=== PATIENT | female | born 1995 | race Caucasian/White ===

== ENCOUNTER 2020-10-09 00:22 | Outpatient (CLI) | payer OTHER ==
[~2020-10-09] VITALS: Ht 162.6 cm; Wt 105.2 kg
[2020-10-09 00:40] VITALS: BP 116/58
[2020-10-09] MEDS ORDERED: ALBU83IN INH (00:44)
[2020-10-09] MEDS ORDERED: ZOLO50TA PO (00:45)
[2020-10-09] MEDS ORDERED: PRENTAB9 PO (00:45)
--- NOTE | 2020-10-09 02:00 | IPNPDOC ---
Text Note Date of Service The patient was seen on 10/09/20. NOTE L&D TRIAGE VISIT HPI: Mrs. Hilary Cunha is a 25yo at 30w6d ega, by LMP, who presents with complaints of SOB (now resolved) & intermittent RUQ pain. Mrs. Cunha reports the onset of shortness of breath (SOB) this morning prompting her to use her albuterol inhaler, which provided minimal improvement. She went about her day and repeated her albuterol this evening. Again, she received minimal relief with continued wheezing. Since arriving to L&D, her SOB has largely resolved and she is more concerned about the status of her baby. Her second complaint is of new onset nausea/vomiting and RUQ pain that began this afternoon after eating BBQ chicken. She has experienced four episodes of emesis. Her RUQ pain occurs several times per hour since starting. Denies sick contacts, HAs, scotoma or a h/o elevated BPs in her . Finally, she denies CTXs, LOF and VB. Endorses + FM. PMH: - Anxiety / Depression PSH: - Negative OBH: - G1: T- - G2: current MEDS: - Vitamins - Sertraline ALL: - Penicillin (rash & swelling) PHYSICAL EXAMINATION Vital Signs: BP - 116/58mmHg, HR - 96bpm, RR - 16, Temp - 96.8F, O2 Saturation - 98% on Room Air Gen: AA0x3, NAD CV: RRR Lungs: CTAB, no wheezing/rhonchi Abd: Gravid uterus, NTTP EXT: No c/c/e LABS CMP: Creatinine - 0.66; ALT/AST - 23/17 Amylase: 74 Lipase: 79 UA: Negative Leukocyte Esterase / Nitrite / Blood / Protein / Glucose; 2+ Ba cteria IMAGING RUQ U/S: - Biliary sludge. LIMITED U/S: SDP - 6.4cm NST: 130bpm, moderate variability, + accelerations, - decelerations, reassuring NST TOCO: No CTXs or irritability ASSESSMENT: 25yo at 30w6d ega who presents for new onset RUQ pain that likely related to her biliary sludge. No e/o pancreatitis at this time. SOB now resolved. PLAN: - Follow-up at next [facility] appointment - Pt instructed to call the [facility] if her symptoms worsen - Return precautions reviewed - All questions answered Lisa Shultz., Ph.D. [facility] Staff VS,Avinash I+Michelle VS, Avinash I+O Vital Signs Date Time Temp Pulse Resp B/P (MAP) Pulse Ox O2 Delivery O2 Flow Rate FiO2 10/09/20 00:40 96.8 96 16 116/58 (77) 98 Room Air LUISA NICOLAS M.D. Oct 09, 2020 01:59
[2020-10-09 02:21] LABS: APPEARANCE, URINE CLEAR (CLEAR); BACTERIA, URINE AUTO 2+ (NEGATIVE); BILIRUBIN, URINE AUTO NEGATIVE (NEGATIVE); BLOOD, URINE BLOOD NEGATIVE (NEGATIVE); COLOR, URINE STRAW (YELLOW); GLUCOSE, URINE (UA) AUTO NEGATIVE (NEGATIVE); KETONE, URINE AUTO NEGATIVE (NEGATIVE); LEUKOCYTE ESTERASE, URINE AUTO NEGATIVE (NEGATIVE); NITRITE, URINE AUTO NEGATIVE (NEGATIVE); PROTEIN, URINE AUTO NEGATIVE (NEGATIVE); RBC, URINE AUTO 1 /HPF (0-3); SPECIFIC GRAVITY URINE AUTO 1.002 (1.002-1.035); SQUAMOUS EPITHELIAL CELL UR AU 0 /HPF (0-6); UROBILINOGEN, URINE AUTO 0.2 mg/dL (0.0-2.0); WBC, URINE AUTO 0 /HPF (0-3)
[2020-10-09 02:26] LABS: ALBUMIN 2.6 GM/DL (3.2-5.2); ALT/SGPT 23 U/L (12-78); AMYLASE 74 U/L (25-115); BILIRUBIN,TOTAL 0.2 MG/DL (0.2-1.0); BLOOD UREA NITROGEN 8 MG/DL (7-18); CALCIUM LEVEL 8.1 MG/DL (8.5-10.1); CARBON DIOXIDE LEVEL 24 MEQ/L (21-32); CHLORIDE LEVEL 108 MEQ/L (98-107); CREATININE FOR GFR 0.66 MG/DL (0.55-1.30); GLOMERULAR FILTRATION RATE > 60.0 (>60); GLUCOSE, FASTING 92 MG/DL (70-100); LIPASE 79 U/L (73-393); SODIUM LEVEL 140 MEQ/L (136-145); TOTAL PROTEIN 6.7 GM/DL (6.4-8.2)
--- NOTE | 2020-10-09 02:32 | REPVR ---
PROCEDURE INFORMATION: Exam: US Abdomen, Limited; Right Upper Quadrant Exam date and time: 10/09/2020 2:00 AM Age: 25 years old Clinical indication: Abdominal pain; Epigastric; ; Additional info: Rule out cholelithiasis - ruq TECHNIQUE: Imaging protocol: US abdomen. Real time ultrasound with image documentation. Limited exam focused on the right upper quadrant. COMPARISON: No relevant prior studies available. FINDINGS: Liver: The echogenicity of the liver is within normal limits. No liver lesion is identified from the images obtained. The contour of the liver is smooth. Gallbladder: There is biliary sludge in the gallbladder. No calculi are noted in the gallbladder. There is no gallbladder wall thickening or pericholecystic fluid. No sonographic Chapman's sign was reported by the angio technologist. Common bile duct: The common bile duct is normal in caliber and at the level of the guille hepatis measures 4 mm. Pancreas: The pancreas is not well visualized due to obscuration by gas in the stomach and bowel. Right kidney: The right kidney measures 12.1 cm in length. There is no renal cortical thinning. The renal cortical echogenicity is within normal limits. No renal lesion is seen. The right renal pelvis is mildly dilated. No obvious stones are seen in the renal collecting system. Intraperitoneal space: No free fluid is seen from the images obtained. IMPRESSION: Biliary sludge in the gallbladder. No cholelithiasis or cholecystitis. Electronically signed by: James Woods On 10/09/2020 02:31:52 AM
== END 2020-10-09 02:44 | disposition home or self-care (01) ==
LOC: M LDO 00:22
PROVIDERS: ATTEND Obstetrics & Gynecology Reproductive Endocrinology
DX: O21.9 Vomiting of pregnancy, unspecified (principal); O26.899 Other specified pregnancy related conditions, unspecified trimester; R10.11 Right upper quadrant pain; Z3A.30 30 weeks gestation of pregnancy; Z87.09 Personal history of other diseases of the respiratory system; Z79.899 Other long term (current) drug therapy; Z88.0 Allergy status to penicillin
CPT/HCPCS: 36415; 59025; 76705; 80053; 81001; 82150; 83690; G0378; G0463

== ENCOUNTER 2020-11-23 14:12 | Outpatient (CLI) | payer OTHER ==
[~2020-11-23] VITALS: Ht 162.6 cm; Wt 105.8 kg
[~2020-11-23 14:12] MED LIST: ALBU83IN INH; PRENTAB9 PO; ZOLO50TA PO
--- NOTE | 2020-11-23 15:45 | IPNPDOC ---
Subjective Date Seen The patient was seen on 11/23/20. Subjective Chief Complaint/HPI 25yo at 37w2d with JJ 9 Dec presents to triage with concern for LOF. States that she woke up around 0300 and noticed a watery discharge. Denies any large gush of fluid, however is concerned that her water may have broken as this is what occurred with her last baby. Denies ctx or VB. +GFM. General: Reports: Normal Appetite; Denies: Chills, Night Sweats, Fatigue, Malaise Constitutional: Denies: Chills, Fever, Night Sweats Pulmonary: Denies: Dyspnea, Cough Cardiovascular: Denies: Chest Pain, Palpitations, Orthopnea, Paroxysmal Noc. Dyspnea, Lt Headedness Genitourinary: Denies: Dysuria, Frequency, Incontinence, Retention Musculoskeletal: Denies: Neck Pain, Back Pain, Joint Pain, Muscle Pain, Spasms Neurological: Denies: Weakness, Numbness, Change in speech, Confusion Objective Physical Examination General Exam: Positive: Alert, No Acute Distress Chest Exam: Positive: Normal air movement Heart Exam: Positive: Rate Normal Abdomen Exam: Positive: Other (gravid) Female Exam: Positive: Nl Ext Genitalia; Negative: Lesions, Discharge, Odor, Tenderness Psych Exam: Positive: Mental status NL, Mood NL, Oriented x 3 Other physical findings FHT: 120's, mod variability, + accels. No decels [place]: irregular contractions, non painful SSE: neg for pooling, nitrizine and ferning. Moderate amount of white, milky discharge SVE: 1/T/H TAUS: cephalic, subjectively normal fluid Assessment /Plan Assessment 25yo at 37w2d with complaint of leaking. Speculum exam neg for pooling, ferning and nitrizine. CLINTON/wet prep negative. SVE 1/T/H. TAUS performed with subjectively normal fluid and fetus in cephalic presentation. ROM ruled out, pt has follow up [facility] scheduled for Nov. Return precautions given. Plan/VTE VTE Prophylaxis Ordered?: No VTE Exclusion Mechanical Proph: Other (triage) VS, I&O, 24H, Fishbone Vital Signs/I&O BP 116/59 HR 87 Temp 97.2 JUNAID STORY M.D. Nov 23, 2020 15:45
== END 2020-11-23 15:40 | disposition home or self-care (01) ==
LOC: M LDO 14:12
PROVIDERS: ATTEND Obstetrics & Gynecology
DX: O26.893 Other specified pregnancy related conditions, third trimester (principal); N89.8 Other specified noninflammatory disorders of vagina; Z37.0 Single live birth; Z88.0 Allergy status to penicillin
CPT/HCPCS: 59025; G0378; G0463

== ENCOUNTER 2020-12-12 15:15 | Outpatient (CLI) | payer OTHER ==
[~2020-12-12] VITALS: Ht 162.6 cm; Wt 106.3 kg
[2020-12-12 15:30] VITALS: BP 118/59
[2020-12-12] MEDS ORDERED: CLAR10CA3 PO (15:31)
[2020-12-12 15:50] VITALS: BP 120/62
[2020-12-12] MEDS ORDERED: ACETAMINOPHEN 500 MG TAB PO ONE (15:50)
--- NOTE | 2020-12-12 17:05 | IPNPDOC ---
Text Note Date of Service The patient was seen on 12/12/20. NOTE S: 25yo renuka 12 Dec 2020 @40+0, presenting for care for c/o dizziness and tension headache. Denies bleeding, lof, states occasional contractions and positive movement. Pt states drinking 30 oz water today and eating regularly. O: VSS FHR 130s, mod variability, +accel, -decel, occasional mild contractions Pt orally hydrated 1 liter, 1000mg tylenol PO x1, with improvement stated in headache Cervical exam /-3 posterior A: headache discomfort [id number] P: pt educated on hydration safe use of medications comfort measures labor precautions methods of induction reasons to return for care Pt and spouse expressed understanding of all instructions VS,Fishbone, I+O VS, Fishbone, I+O Vital Signs Date Time Temp Pulse Resp B/P (MAP) Pulse Ox O2 Delivery O2 Flow Rate FiO2 12/12/20 15:50 82 120/62 (81) 12/12/20 15:30 97.0 18 SARAH HERNANDEZ CNM Dec 12, 2020 17:05
== END 2020-12-12 17:00 | disposition home or self-care (01) ==
LOC: M LDO 15:15
PROVIDERS: ATTEND Registered Nurse
DX: O47.1 False labor at or after 37 completed weeks of gestation (principal); Z3A.40 40 weeks gestation of pregnancy
CPT/HCPCS: 59025; G0378; G0463

== ENCOUNTER 2020-12-18 23:28 | Inpatient (IN) | payer OTHER ==
[~2020-12-18] VITALS: Ht 162.6 cm; Wt 107.9 kg
[~2020-12-18 23:28] MED LIST changes: +CLAR10CA3 PO
[2020-12-18 23:59] VITALS: BP 117/57
[2020-12-19] VITALS (24 sets, daily range): BP systolic 97–153; BP diastolic 50–73
[2020-12-19] MEDS ORDERED: LACTATED RINGER'S 1000 ML IV STA (00:40)
[2020-12-19] MEDS ORDERED: LR 1,000 ML IV SCH (00:40)
[2020-12-19 01:20] LABS: HEMATOCRIT 38.6 % (36.0-47.0); HEMOGLOBIN 13.1 g/dl (12.0-15.5); MEAN CORPUSCULAR HEMOGLOBIN 30.6 pg (27.0-33.0); MEAN CORPUSCULAR HGB CONC 33.9 g/dl (32.0-36.5); MEAN CORPUSCULAR VOLUME 90.2 fl (80.0-96.0); PLATELET COUNT, AUTOMATED 223 10^3/uL (150-450); RED BLOOD COUNT 4.28 10^6/uL (4.00-5.40)
[2020-12-19] MEDS ORDERED: FENTANYL 2MCG/ML ROPIVACAINE 0.2% IN 0.9% NACL 100ML IVBAG As Ordered ONE ×2 (03:44→12:38)
--- NOTE | 2020-12-19 03:58 | HPEPDOC ---
Obstetrical History & Physical General Date of Admission Dec 19, 2020 at 00:13 History of Present Illness 25 yo @ 41 weeks by LMP who is admitted in labor at late term. she presented due to contractions and had cervical change. she denies any VB, LOF,Decreased movements. She denies any new headaches, visual abnormalities, chest pain, worsening dyspnea, facial swelling, or upper extremity swelling. At this time, she continues to report regular movement. Chief Complaint: Contractions, term Information Provided By: Patient Care Care: Good Care Dating Final EDC: Dec 12, 2020 Final EDC by: LMP Estimated Date of Confinement: Dec 12, 2020 Antepartum Course Diagnos(e)s 1. Depression with HX of SI in first trimester- taking zoloft now and seeing . No SI/HI on admission 2. Asthma 3. Obesity 4. Carpal Tunnel Height (inches): 64 Pre- weight (lbs.): 210 Admission Weight (lbs.): 236 Change in Weight (lbs.): 26 Past Medical History Past Obstetrical History : Past Obstetrical History: Multigravida Sex of : Male Complications: No OCCUPATIONAL THERAPY AIDE History: No pertinent history Past Medical History Medical History depression, anxiety, asthma, eczema, carpal tunnel Surgical History: Tooth extraction, [place] teeth Family History Significant Family History: No pertinent family hx Family History non contributory Social History Marital Status: Family situation: Spouse/partner home Psychosocial History: Anxiety, Depression * Smoker: non-smoker Alcohol: Denies Drugs: denies Abuse Violence Screening Have you been hit/kicked/slapp: No Have you been sexually assault: No Imunizations Tdap status: current Influenza Status: current Allergies Coded Allergies: penicillin G (Verified Allergy, Severe, 10/09/20) Medications Scheduled Loratadine (Claritin) 10 Mg Capsule, 10 MG PO DAILY for allergy symptoms No.137/Iron/Folic Acd ( Vitamin Tablet) 1 Each Tablet, 1 TAB PO DAILY Sertraline Hcl (Zoloft) 50 Mg Tablet, 50 MG PO DAILY Scheduled PRN Albuterol Sulf (Albuterol Sulfate) 2.5 Mg/3 Ml Vial.neb, 2.5 MG INH for SOB/WHEEZING Physical Examination Physical Examination GENERAL: Alert and oriented times three. BREAST: . ABDOMEN: Gravid and non-tender to touch. FETUS: Is vertex (VTX) by sterile vaginal examination (SVE) HEART RATE: Regular rate and rhythm. LUNGS: Clear to auscultation (CTA). EXTREMITIES: No edema. Vital Signs/I&O Vital Signs Date Time Temp Pulse Resp B/P (MAP) Pulse Ox O2 Delivery O2 Flow Rate FiO2 12/18/20 23:59 98.1 75 18 117/57 (77) Laboratory Data 24H LABS Laboratory Tests 2 12/19/20 00:25: Serology Scanned Report Hepatitis B Testing 12/19/20 01:07: Nucleated Red Blood Cells % (auto) 0.0 CBC/BMP Laboratory Tests 12/19/20 01:07 Pertinent Laboratoy Data Blood Type: O+ RBC Antibody Screen: Negative HIV: Negative Hepatitis B: Negative Hepatitis C: Unknown Rapid Plasma Reagin: Nonreactive Rubella: Immune Varicella: Immune Chlamydia/Gonorrhea: Negative Group B Streptococcus: Negative Quad Screen Test: Unknown Cystic Fibrosis: Unknown Glucose Tolerance Test: 101 Anatomy Ultrasound Placenta Location: Posterior Normal Anatomy: No (eif) Steroid Therapy Steroid Therapy: No Vaginal Examination Dilation: 3 cm Cervical Consistency: Soft Cervical Position: Posterior Presentation: Cephalic presentation Assessment Heart Rate (FHR): 140 Accelerations: Positive Decelerations: None Tocometer Contractions: Yes Frequency: regular Duration: greater than 60 seconds Strength: palpated as moderate Multi-drug resistant Organism: No history of MDRO Assessment/Plan Assessment Assessment: 25 yo @ 41 weeks by LMP who is admitted in labor at late term. Category I FHRT. APC: 1. Depression with HX of SI in first trimester- taking zoloft now and seeing . No SI/HI on admission 2. Asthma 3. Obesity 4. Carpal Tunnel SVE: /-2 GBS NEG Cephalic by Exam EFW 3600 RH POS Placenta posterior Plan Plan: - Admit to L&D. - Consent signed and given to RN - CBC with type and screen. - EFM x2 - Anesthesia to see- patient wants epidural now - Risks of augmentation with Cytotec, May-Bulb, and Pitocin discussed with patient. Labor and Delivery Counseling We will deliver your baby through the vagina with possible assistance of forceps or vacuum device if needed for maternal or indications. Forceps and vacuum are devices that can assist with vaginal delivery when normal pushing efforts cannot achieve delivery on their own or when delivery is needed in an emergency for baby's well-being. Medications may be required to induce or augment (help) your labor in order to achieve a vaginal delivery. An episiotomy may be required to help your baby to delivery vaginally. You may also require repair of any lacerations or tears of your vagina or vulva that are caused by delivery. In some cases, emergencies can occur that require an emergency section delivery so quickly that there may not be enough time to stop and complete consent forms for section. Understand that if this occurs, your providers will discuss the need for a section with you before they proceed with surgery. section is the delivery of your baby through an incision in your abdomen. In some situations, section may be safer to mom and baby than continuing labor and is only performed when clinically indicated. Risks of vaginal delivery include but are not limited to: Bleeding, infection, injury to the vagina, pelvic structures, injury to baby, damage to the uterus, reactions to anesthesia, uterine rupture, risk of hysterectomy for life threatening bleeding, or . Medications used to induce or augment labor may increase your risk for infection, uterine tachysystole, uterine rupture, heart rate abnormalities, need for emergency delivery or possible hysterectomy, and hemorrhage. Additional risks for use of forceps and vacuum include: increased risk of perineal and vaginal lacerations, risk of urinary or bowel incontinence, increased risk of injury to baby with bruising, scratches, hematomas on the head, or intracranial bleeding. CHARLEE ANN MD Dec 19, 2020 03:57
[2020-12-19] MEDS ORDERED: ONDANSETRON 4MG/2ML VIAL IV PRN (04:25)
[2020-12-19] MEDS ORDERED: ePHEDrine SULFATE 25 MG/5 ML(5MG/ML) SYRINGE IV PRN (04:25)
[2020-12-19] MEDS ORDERED: diphenhydrAMINE 50MG/ML VIAL (J1200) IV PRN (04:25)
[2020-12-19] MEDS ORDERED: EPIDURAL/PCA KEYS XX PRN (04:25)
[2020-12-19] MEDS ORDERED: LACTATED RINGER'S 1000 ML IV PRN (04:25)
[2020-12-19] MEDS ORDERED: EPIDURAL COMMENT XX SCH (04:25)
[2020-12-19] MEDS ORDERED: REFRIGERATOR IV KEYS XX PRN (04:25)
[2020-12-19] MEDS ORDERED: NALOXONE INJ 0.4MG/1ML VIAL (J2310 PER 1MG) IV PRN (04:25)
[2020-12-19] MEDS ORDERED: OXYTOCIN 30 UNITS IN 0.9% NaCl 500ML IV BAG (J2590) As Ordered ONE (04:54)
[2020-12-19] MEDS: FENTANYL/ROPIVACAINE/NACL BAG 100 ML EPIDURAL SCH ×2 (05:57→12:41)
[2020-12-19] MEDS ORDERED: OXYTOCIN DRIP 30 UNITS in IV 1 EA IV SCH (07:55)
--- NOTE | 2020-12-19 08:00 | IPNPDOC ---
Obstetrical Progress Note Date of Service Dec 19, 2020 Subjective 25 yo admitted for labor. She is comfortable with her epidural. She denies any further complaints. She has supportive family at the bedside. Objective Vital Signs Date Time Temp Pulse Resp B/P (MAP) Pulse Ox O2 Delivery O2 Flow Rate FiO2 12/19/20 07:17 65 18 97/52 (67) 12/19/20 07:04 98.3 AROM clear fluid Assessment Heart Rate (FHR): 130 Variability: Moderate Accelerations: Present Decelerations: None Tocometer Contractions: Yes Frequency: regular (every 4-5 minutes) Sterile Vaginal Examination Dilation: 6 cm (6-7 cm) Effacement (%): 80% Station: -2 Cervical Consistency: Soft Cervical Position: Middle Postion/Presentation: Cephalic presentation Assessment and Plan Age: 25 : 2 Term: 1 Pre-term: 0 Abortions: 0 Livin Weeks & Days 41w0d Status: Reassuring Group B Streptococcus: Negative Anticipate: Vaginal Delivery Additional Comments Will start pitocin augmentation KAI GOEL CNM Dec 19, 2020 08:00
--- NOTE | 2020-12-19 11:17 | IPNPDOC ---
Obstetrical Progress Note Date of Service Dec 19, 2020 Subjective 25 yo at 41w0d admitted for labor. She is comfortable with her epidural. She reports that she is feeling rectal pressure. She has supportive family at the bedtime. It has been difficult to trace infant externally and RN is requesting for internal monitoring. Discussed with patient and spouse, who are agreeable with the plan. Objective Vital Signs Date Time Temp Pulse Resp B/P (MAP) Pulse Ox O2 Delivery O2 Flow Rate FiO2 12/19/20 08:36 87 18 132/64 (86) 12/19/20 07:04 98.3 Pitocin decreased from 8 mu/min to 4 mu/min IV fluid bolus started Patient has been repositioned FSE and IUPC placed without difficulty Cervical exam: Anterior lip/100/+1, Anterior lip is not reducible with practice pushing Assessment Heart Rate (FHR): 135 Variability: Moderate Accelerations: None Decelerations: Variable Tocometer Contractions: Yes Frequency: regular (every 3-4 minutes) Assessment and Plan Age: 25 : 2 Term: 1 Pre-term: 0 Abortions: 0 Livin Weeks & Days 41w0d Status: Reassuring Group B Streptococcus: Negative Anticipate: Vaginal Delivery KAI GOEL CNM Dec 19, 2020 11:10
[2020-12-19 14:42] LABS: CORD GAS ABE V -6.3; CORD GAS HCO3 V 18.9 MEQ/L; CORD GAS O2 SAT V 84.2 %; CORD GAS PH V 7.326 UNITS; CORD GAS PO2 V 39.3 mmHg; CORD GAS SBC V 19.1 MEQ/L
[2020-12-19 14:45] LABS: CORD GAS ABE A -7.2; CORD GAS HCO3 A 17.9 MEQ/L; CORD GAS O2 SAT A 88.7 %; CORD GAS PCO2 A 35.5 mmHg; CORD GAS PH A 7.321 UNITS; CORD GAS PO2 A 44.7 mmHg; CORD GAS SBC A 18.5 MEQ/L
[2020-12-19] MEDS ORDERED: ACETAMINOPHEN TAB 650MG DOSE (2X325MG) PO PRN (14:45)
[2020-12-19] MEDS ORDERED: RHOGAM 300 MCG (1500 IU) INJ (J2790) IM SCH (14:45)
[2020-12-19] MEDS ORDERED: IBUPROFEN 800 MG TAB PO PRN (14:45)
[2020-12-19] MEDS ORDERED: ACETAMINOPHEN 500 MG TAB PO PRN (14:45)
[2020-12-19] MEDS ORDERED: METHYLERGONOVINE MALEATE 0.2 MG TAB PO PRN (14:45)
[2020-12-19] MEDS ORDERED: IBUPROFEN 600MG TAB PO PRN (14:45)
[2020-12-19] MEDS ORDERED: PROMETHAZINE 25 MG TAB PO PRN (14:45)
[2020-12-19] MEDS ORDERED: MEASLES,MUMPS,RUBELLA VACCINE INJ (MMR-II) (90707) SC SCH (14:45)
--- NOTE | 2020-12-19 16:40 | DNPDOC ---
[facility] Delivery Note Delivery Note Date of the procedure: 19 DEC 2020 Preoperative diagnosis: 1. 25 y/o at 41w0d 2. Active labor 3. GBS negative 4. O positive 5. Obesity 6. Asthma 7. Depression, on zoloft 8. Anxiety 9. Hx of suicidal ideations, no attempts Postoperative diagnosis: 1. 25 y/o G2 now P2002 at 41w0d 2. Active labor 3. GBS negative 4. O positive 5. Obesity 6. Asthma 7. Depression, on zoloft 8. Anxiety 9. Hx of suicidal ideations, no attempts 10. Tight nuchal cord x1 11. Thick terminal meconium Procedure: Delivering Provider: YANNA Tinajero CNM, [facility] Mold Repairer Back-up: Dr. Marissa Grider Anesthesia: Epidural EBL: 350 ml Specimens: Cord blood and cord gasses collected. Findings: Live male infant weighing 8 lb 10 oz, 3900 grams with Apgars of 1 and 4 and 6 at 1 and 5 and 10 minutes respectively. Complications: Tight nuchal cord x1 Details of the procedure: The patient presented complaining of contractions and was found to be in labor. Patient was 3 cm dilated and was then admitted to L&D. Labor progressed without Pitocin and membranes were ruptured artificially for clear fluid.. The patient progressed to fully dilated and entered the second stage of labor, at which point she began to push over an intact perineum. The head was then delivered. A tight nuchal cord was noted and not reducible. The cord was clamped x2 and cut on the perineum. The rest of the infant was delivered. The infant was sent to the [facility] with the awaiting infant nurse. The team provided care to the and prior to the baby leaving the delivery room to the NICU for observation, the was breathing spontaneously, moving spontaneously, and color was pink. Cord blood was collected and a 3 vessel cord was noted. Manual exploration of the uterus was not performed. Uterine tone was firm. Perineum was inspected and no laceration was found. Cervical exam was normal. Rectal exam was not noted. Sponge, instrument, and needle counts were correct. The patient tolerated the procedure well and is stable in recovery. Note was written and electronically signed by: YANNA Tinajero, DIANELYS, [facility] KAI GOEL CNM Dec 19, 2020 14:55
[2020-12-19] MEDS: DOCUSATE SODIUM 100MG CAPSULE PO SCH (20:02)
[2020-12-19] MEDS: DIBUCAINE 1% OINTMENT 30GM TOP PRN (20:02)
[2020-12-20 04:48] VITALS: BP 124/66
[2020-12-20 07:32] LABS: HEMATOCRIT 34.5 % (36.0-47.0); HEMOGLOBIN 11.4 g/dl (12.0-15.5); MEAN CORPUSCULAR HEMOGLOBIN 30.4 pg (27.0-33.0); PLATELET COUNT, AUTOMATED 173 10^3/uL (150-450); RED BLOOD COUNT 3.75 10^6/uL (4.00-5.40); WHITE BLOOD COUNT 11.4 10^3/uL (4.0-10.0)
--- NOTE | 2020-12-20 07:35 | IPNPDOC ---
Progress Note Date of Service: Dec 20, 2020 Progress Note SUBJECT: Hilary is a 25yo G2 now P2002 day #1 status post uncomplicated spontaneous vaginal delivery at 41 weeks' on 12/19/20 of a male infant weighing 8 lb 10 oz, 3900 grams with Apgars of 1 and 4 and 6 at 1 and 5 and 10 minutes respectively. She has been ambulating, voiding spontaneously without issue and tolerating regular diet. Breast feeding without issue. Reports lochia is minimal. Desires circumcision for infant OBJECTIVE: VITAL SIGNS: Within normal limits, afebrile. Alert and oriented times three. Normal work of breathing Heart rate: Regular rate and rhythm, no murmurs, rubs or gallops. Abdomen: Fundus firm at U-2. Soft, NTTP. ASSESSMENT: Hilary is a 25yo G2 now P2002 day #1 status post uncomplicated spontaneous vaginal delivery at 41 weeks' on 12/19/20 of a male infant weighing 8 lb 10 oz, 3900 grams with Apgars of 1 and 4 and 6 at 1 and 5 and 10 minutes respectively doing well on day 1. Vitals within normal limits, afebrile, hemodynamically stable with no evidence of infection. PLAN: 1. Discharge to home tomorrow. 2. Tylenol and Motrin for pain. 3. Encourage breast feeding and ambulation. 4. Desires minipill for contraception 5. Routine PP visit in 6 weeks in clinic. 6. Discussed return precautions at length. VS, I&O, 24H, Fishbone Vital Signs/I&O Vital Signs Date Time Temp Pulse Resp B/P (MAP) Pulse Ox O2 Delivery O2 Flow Rate FiO2 12/20/20 04:48 97.3 78 18 124/66 (85) 100 Room Air I&O- Last 24 Hours up to 6 AM 12/20/20 06:00 Intake Total 2960 ml Output Total 1000 ml Balance 1960 ml Laboratory Data 24H LABS Laboratory Tests 2 12/19/20 14:35: Cord Arterial Blood pH 7.321, Cord Arterial Blood PCO2 35.5, Cord Arterial Blood PO2 44.7, Cord Arterial Blood HCO3 17.9, Cord Arterial Blood Total CO2 19.0, Cord Arterial Blood Base Excess -7.2, Cord Arterial Base Excess (Standard 18.5, Cord Arterial Bld Oxygen Saturation 88.7, Cord Venous Blood pH 7.326, Cord Venous Blood PCO2 37.0, Cord Venous Blood PO2 39.3, Cord Venous Blood HCO3 18.9, Cord Venous Blood Total CO2 20.0, Cord Venous Base Excess (Actual) -6.3, Cord Venous Base Excess (Standard) 19.1, Cord Venous Blood Oxygen Saturation 84.2 CBC/BMP Laboratory Tests 12/20/20 06:48 JUNAID STORY M.D. Dec 20, 2020 07:35
[2020-12-20] MEDS ORDERED: PRENATAL VITAMINS CHEWABLE TABLET PO SCH (09:00)
[2020-12-20] MEDS: DOCUSATE SODIUM 100MG CAPSULE PO SCH ×2 (09:28→21:55)
[2020-12-20] MEDS: DIBUCAINE 1% OINTMENT 30GM TOP PRN (09:30)
[2020-12-20 18:00] VITALS: BP 140/90
[2020-12-21 06:00] VITALS: BP 135/60
--- NOTE | 2020-12-21 06:50 | OBDS ---
[facility] Obstetrical Discharge Sum. A/P, Post Course List any complications Admission diagnosis: LABOR AT LATE TERM, 41 WEEKS Discharge diagnosis: Condition at Discharge: Discharge Instructions: Home Activity: PELVIC REST Diet: REGULAR Medications: AT [facility] Follow-up:6 WK PP Hilary is a 25yo G2 now P2002 day #2 status post uncomplicated spontaneous vaginal delivery at 41 weeks' on 12/19/20 of a male weighing 8 lb 10 oz, 3900 grams with Apgars of 1 and 4 and 6 at 1 and 5 and 10 minutes respectively. She has been ambulating, voiding spontaneously without issue and tolerating regular diet. Breast feeding without issue. Reports lochia is minimal. Desires circumcision for OBJECTIVE: VITAL SIGNS: Within normal limits, afebrile. Alert and oriented times three. Normal work of breathing Heart rate: Regular rate and rhythm, no murmurs, rubs or gallops. Abdomen: Fundus firm at U-2. Soft, NTTP. ASSESSMENT: Hilary is a 25yo G2 now P2002 day # status post uncomplicated spontaneous vaginal delivery at 41 weeks' on 12/19/20 of a male infant weighing 8 lb 10 oz, 3900 grams with Apgars of 1 and 4 and 6 at 1 and 5 and 10 minutes respectively doing well on day 1. Vitals within normal limits, afebrile, hemodynamically stable with no evidence of infection. PLAN: 1. Discharge to home today 2. Tylenol and Motrin for pain. 3. Encourage breast feeding and ambulation. 4. Desires minipill for contraception 5. Routine PP visit in 6 weeks in clinic. 6. Discussed return precautions at length. CHARLEE ANN MD Dec 21, 2020 5:43 am
[2020-12-21] MEDS ORDERED: COLA100C5 PO (06:53)
[2020-12-21] MEDS ORDERED: ACET-683 PO (06:53)
[2020-12-21] MEDS ORDERED: IBUP80TA PO (06:53)
[2020-12-21] MEDS ORDERED: NORE0.353 PO (06:54)
[2020-12-21] MEDS ORDERED: LORATADINE 10 MG TAB PO SCH (09:00)
[2020-12-21] MEDS ORDERED: SERTRALINE HCL 50 MG TAB PO SCH (09:00)
--- NOTE | 2020-12-23 18:49 | IPN ---
PROGRESS NOTE DATE: 12/20/2020 This patient requested circumcision of her male . After discussing risks and benefits of circumcision, the medical, the nonmedical indications, the penile block and aftercare, expressed understanding of penile block aftercare and bleeding, signed the consent form. All questions were answered. Twenty minute discussion. We await clearance by the healthcare technician. cc: Kayy Pitts OB
== END 2020-12-21 13:50 | disposition home or self-care (01) | DRG 807 ==
LOC: M LDO 23:28 → M LDI 12-19 00:13 → M PED 12-19 17:21 → M OBS 12-19 18:33 → M PED 12-19 18:45 → M OBS 12-20 16:52
PROVIDERS: ADMIT Obstetrics & Gynecology; ATTEND Obstetrics & Gynecology
PROC: 10E0XZZ Delivery of Products of Conception, External Approach (ICD-10-PCS; principal; 2020-12-19)
PROC: 10907ZC Drainage of Amniotic Fluid, Therapeutic from Products of Conception, Via Natural or Artificial Opening (ICD-10-PCS; 2020-12-19)
DX: O48.0 Post-term pregnancy (principal); Z37.0 Single live birth; Z3A.41 41 weeks gestation of pregnancy; O99.52 Diseases of the respiratory system complicating childbirth; J45.909 Unspecified asthma, uncomplicated; O99.214 Obesity complicating childbirth; E66.9 Obesity, unspecified; O69.1XX0 Labor and delivery complicated by cord around neck, with compression, not applicable or unspecified; O77.0 Labor and delivery complicated by meconium in amniotic fluid